=== PATIENT | female | born 1980 | race Two or more races ===

== ENCOUNTER 2017-10-07 17:59 | Emergency (ER) | payer BC, OTHER ==
[~2017-10-07] VITALS: Ht 162.6 cm; Wt 81.6 kg
--- NOTE | 2017-10-07 19:46 | NUR ---
DR MIKEY TONEY MD AT BEDSIDE FOR MSE.
--- NOTE | 2017-10-07 20:07 | NUR ---
LAB AT PT BEDSIDE FOR BLOOD DRAW.
[2017-10-07 20:13] LABS: BASOPHILS # (AUTO) 0.1 K/uL (0.0-8.0); BASOPHILS % (AUTO) 0.6 % (0.0-2.0); EOSINOPHILS # (AUTO) 0.2 K/uL (0.0-0.7); EOSINOPHILS % (AUTO) 2.4 % (0.0-7.0); HEMATOCRIT 41.1 % (31.2-41.9); HEMOGLOBIN 13.5 g/dL (10.9-14.3); LYMPHOCYTES % (AUTO) 22.8 % (20.5-51.5); MEAN CORPUSCULAR HEMOGLOBIN 27.3 uug (24.7-32.8); MEAN CORPUSCULAR HGB CONC 33 g/dL (32.3-35.6); MEAN CORPUSCULAR VOLUME 83.1 fL (75.5-95.3); MONOCYTES # (AUTO) 0.4 K/uL (2.0-10.0); NEUTROPHILS # (AUTO) 6.1 K/uL (1.8-8.9); NEUTROPHILS % (AUTO) 69.2 % (38.5-71.5); PLATELET COUNT (AUTO) 212 K/uL (179-408); RED BLOOD CELL COUNT(AUTO) 4.95 MIL/uL (3.63-4.92); WHITE BLOOD COUNT (AUTO) 8.8 K/uL (3.8-11.8)
[2017-10-07 20:24] LABS: CREATININE 0.7 mg/dL (0.6-1.3); POTASSIUM 4.2 mmol/L (3.5-5.1)
[2017-10-07 20:37] LABS: BILIRUBIN,DIRECT 0.1 mg/dL (0.0-0.2); BILIRUBIN,TOTAL 0.4 mg/dL (0.2-1.0); TOTAL PROTEIN, SERUM 8.1 g/dL (6.4-8.2)
[2017-10-07] MEDS ORDERED: IV NORMAL SALINE 1000 ML BAG IV ONE (21:15)
--- NOTE | 2017-10-07 21:30 | NUR ---
RADIOLOGY CALLED FOR CT ANGIO.
[2017-10-07] MEDS ORDERED: NORMAL SALINE FLUSH 10 ML DISP.SYRIN ONE (21:32)
[2017-10-07] MEDS ORDERED: IV NORMAL SALINE 100 ML ONE (21:32)
[2017-10-07] MEDS ORDERED: IOHEXOL 350 100 ML INFUS..BTL ONE (21:32)
[2017-10-07] MEDS ORDERED: SWABABLE VALVE TRANSFER SET EA MC ONE (21:32)
--- NOTE | 2017-10-07 23:01 | NUR ---
PT RESTING IN BED IN A POSITION OF COMFORT. PT DENIES PAIN, N/V, BANKS. NO DISTRESS NOTED. PENDING RESULTS OF CTA.
--- NOTE | 2017-10-07 23:45 | NUR ---
COPY OF TEST RESULTS GIVEN DR JENSEN MADE PATIENT AWARE OF TEST RESULTS.
--- NOTE | 2017-10-07 23:52 | NUR ---
Patient discharged to home in stable conditon. Written and verbal after care instructions given. Patient verbalizes understanding of instructions.
[2017-10-07 23:53] VITALS: BP 118/71
== END 2017-10-07 23:56 | disposition home or self-care (01) ==
LOC: ER 18:01
DX: R09.1 Pleurisy (principal); I25.10 Atherosclerotic heart disease of native coronary artery without angina pectoris; I24.9 Acute ischemic heart disease, unspecified; I26.99 Other pulmonary embolism without acute cor pulmonale; E78.5 Hyperlipidemia, unspecified
CPT/HCPCS: 36415; 71045; 71275; 80048; 80076; 83880; 84484; 84703; 85025; 85379; 85730; 93005; 99285; A4663; J3490 ×2; J7030; Q9967; 70030-TC